=== PATIENT | female | born 1985 | race Caucasian/White ===

== ENCOUNTER → 2016-04-26 | Outpatient (CLI) | payer MEDICAID ==
[~2016-04-26] MED LIST: HYDR250V7 IM; PNV91TAB3 PO
[2016-04-26 10:23] LABS: BASOPHILS % (AUTO) 0 % (0-2); EOSINOPHILS # (AUTO) 0.1 10^3uL; EOSINOPHILS % (AUTO) 1 % (0-4); LYMPHOCYTES # (AUTO) 1.9 X10^3; MEAN CORPUSCULAR HGB CONC 35.1 g/dL (31.0-37.0); MEAN CORPUSCULAR VOLUME 96 FL (80-100); MEAN PLATELET VOLUME 10.6 FL (6.0-9.5); MONOCYTES # (AUTO) 0.6 X10^3; MONOCYTES % (AUTO) 5 % (3-11); NEUTROPHILS # (AUTO) 8.9 X10^3; NEUTROPHILS % (AUTO) 77 % (51-67); PLATELET COUNT 264 10^3uL (150-450); WHITE BLOOD COUNT 11.63 10^3uL (4.0-11.0)
[2016-04-26 10:28] LABS: MEAN CORPUSCULAR HEMOGLOBIN 33.5 PG (26.0-34.0)
[2016-04-26 11:31] LABS: BILIRUBIN,URINE Negative (Negative); CLARITY,URINE Clear; COLOR,URINE Yellow; GLUCOSE, URINE (UA) Negative (Negative); LEUKOCYTE ESTERASE ,URINE 1+ (Negative); PH,URINE 6.5 (5.0 - 8.0); UROBILINOGEN,URINE 0.2 mg/dL (0.2-1.0)
[2016-04-26 11:49] LABS: RBC,URINE 0-2 /HPF; URINE CENTRIFUGED VOLUME 12 mL
--- NOTE | 2016-04-26 15:17 | Diagnostic Imaging Report ---
INDICATION: Low-lying placenta. EXAMINATION: OB sonogram greater than 14 weeks from 04/26/2016. COMPARISON: Correlation made to previous sonogram dated 02/27/2016. FINDINGS: There is a single live intrauterine gestation. It is currently cephalic in positioning. Maternal cervix measures at least 3.2 cm in length. Today's measurements correspond with a 30 weeks 3 days . This correlates well with the first sonogram performed on 01/13/2016. Amniotic fluid index today is 8.02 towards the lower limits of normal but still within normal limits. cardiac activity is 139 beats per minute. The abdominal circumference and the femoral length are discrepant when compared to the head circumference. A short-term followup could reevaluate this finding. The remaining visualized anatomy is grossly unremarkable. IMPRESSION: 1. Single live intrauterine gestation with measurements corresponding well with the previous sonograms. However, measurements are somewhat discrepant when comparing the head circumference to the remaining measurements. Short-term followup could reevaluate. Remaining examination is unremarkable. Dictated by: Dictated on workstation # [id number]
== END ==
LOC: RAD 10:05
PROVIDERS: ATTEND Obstetrics & Gynecology
DX: O36.19 Maternal care for other isoimmunization (principal); O09.212 Supervision of pregnancy with history of pre-term labor, second trimester; O44.42 Low lying placenta NOS or without hemorrhage, second trimester; O34.42 Maternal care for other abnormalities of cervix, second trimester; R82.99 Other abnormal findings in urine; Z3A.30 30 weeks gestation of pregnancy
CPT/HCPCS: 36415; 76805; 81003; 81015; 82947; 82950; 85025; 86870; 86886; 87088

== ENCOUNTER 2016-04-30 11:46 | Outpatient (CLI) | payer MEDICAID ==
[~2016-04-30] VITALS: Ht 167.6 cm; Wt 70.0 kg
[2016-04-30 11:45] VITALS: BP 137/83
== END 2016-04-30 12:15 | disposition home or self-care (01) ==
LOC: OBGOP 11:46 → OB 11:47 → OBGOP 12:15
PROVIDERS: ATTEND Obstetrics & Gynecology
DX: Z03.79 Encounter for other suspected maternal and fetal conditions ruled out (principal); Z3A.30 30 weeks gestation of pregnancy
CPT/HCPCS: 84112; G0463; 99202

== ENCOUNTER → 2016-05-19 | Outpatient (CLI) | payer MEDICAID | LOC: RAD 12:15 | PROVIDERS: ATTEND Obstetrics & Gynecology | DX: O09.213 Supervision of pregnancy with history of pre-term labor, third trimester (principal); Z98.891 History of uterine scar from previous surgery; O36.5930 Maternal care for other known or suspected poor fetal growth, third trimester, not applicable or unspecified; Z3A.32 32 weeks gestation of pregnancy | CPT/HCPCS: 76805 ==

== ENCOUNTER 2016-05-28 11:34 | Outpatient (CLI) | payer MEDICAID ==
[~2016-05-28] VITALS: Ht 170.2 cm; Wt 160.0 kg
--- NOTE | 2016-05-28 11:45 | NUR ---
Pt to OB for NST and BP checks. Monitors applied.
[2016-05-28 11:55] VITALS: BP 142/87
[2016-05-28 12:09] VITALS: BP 153/86
[2016-05-28 12:20] VITALS: BP 142/87
[2016-05-28 12:22] VITALS: BP 157/94
--- NOTE | 2016-05-28 12:38 | NUR ---
Dr. Monreal here, monitor strip reviewed. Monitors off per Dr. Monreal.
[2016-05-28 13:07] LABS: MEAN CORPUSCULAR HEMOGLOBIN 33.3 PG (26.0-34.0); MEAN CORPUSCULAR HGB CONC 35.1 g/dL (31.0-37.0); MEAN PLATELET VOLUME 10.8 FL (6.0-9.5); WHITE BLOOD COUNT 10.45 10^3uL (4.0-11.0)
[2016-05-28 13:17] LABS: ALBUMIN 3.8 g/dL (3.4-5.0); ANION GAP 12.1 MEQ/L (3-15); CALCULATED IONIZED CALCIUM 3.9 mg/dL (3.8-4.6)
--- NOTE | 2016-05-28 13:30 | NUR ---
Dismissed to home with instructions. Verbalizes understanding and denies questions or concerns.
== END 2016-05-28 13:30 | disposition home or self-care (01) ==
LOC: EUOP 11:34 → OB 11:35 → EUOP 13:30
PROVIDERS: ATTEND Obstetrics & Gynecology
DX: Z34.93 Encounter for supervision of normal pregnancy, unspecified, third trimester (principal); Z3A.34 34 weeks gestation of pregnancy
CPT/HCPCS: 36415; 59025; 80053; 83615; 85027; 85384; 85610; 85730

== ENCOUNTER 2016-05-31 20:28 | Outpatient (CLI) | payer MEDICAID ==
[~2016-05-31] VITALS: Ht 170.2 cm; Wt 70.0 kg
[2016-05-31 20:45] VITALS: BP 167/86
[2016-05-31 21:03] VITALS: BP 141/84
[2016-05-31 21:19] VITALS: BP 140/81
[2016-05-31 21:27] LABS: BILIRUBIN,URINE Negative (Negative); CLARITY,URINE Clear; COLOR,URINE Yellow; GLUCOSE, URINE (UA) Negative (Negative); LEUKOCYTE ESTERASE, URINE 1+ (Negative); PH,URINE 6.5 (5.0 - 8.0); UROBILINOGEN,URINE 0.2 mg/dL (0.2-1.0)
== END 2016-05-31 21:55 ==
LOC: EUOP 20:28 → OB 20:29 → EUOP 21:55
PROVIDERS: ATTEND Obstetrics & Gynecology
DX: O46.8X3 Other antepartum hemorrhage, third trimester (principal); Z3A.34 34 weeks gestation of pregnancy
CPT/HCPCS: 81003; G0463; 99204

== ENCOUNTER 2016-06-04 13:02 | Outpatient (CLI) | payer MEDICAID ==
[~2016-06-04] VITALS: Ht 170.2 cm; Wt 63.6 kg
--- NOTE | 2016-06-04 13:05 | NUR ---
Admitted to OB for NST. Monitors applied.
[2016-06-04 13:16] VITALS: BP 148/83
[2016-06-04 13:25] VITALS: BP 134/80
[2016-06-04 13:38] VITALS: BP 153/89
--- NOTE | 2016-06-04 13:55 | NUR ---
Dismissed to home with instructions. Verbalizes understanding of all instructions.
--- NOTE | 2016-06-04 14:12 | NUR ---
UA dipstick trace for protein. Addendum: 06/04/16 at 1419 by Jerri Villa RN Reactive NST
[2016-06-04 14:20] VITALS: BP 153/89
== END 2016-06-04 13:55 | disposition home or self-care (01) ==
LOC: EUOP 13:02 → OB 13:03 → EUOP 13:55
PROVIDERS: ATTEND Obstetrics & Gynecology
DX: O13.3 Gestational [pregnancy-induced] hypertension without significant proteinuria, third trimester (principal); Z3A.35 35 weeks gestation of pregnancy
CPT/HCPCS: 59025

== ENCOUNTER 2016-06-05 13:10 | Outpatient (CLI) | payer MEDICAID ==
[~2016-06-05] VITALS: Ht 170.2 cm; Wt 72.0 kg
[2016-06-05 13:23] VITALS: BP 140/87
[2016-06-05 13:55] VITALS: BP 145/76
[2016-06-05] MEDS ORDERED: SODIUM CHLORIDE FLUSH 10 ML ONE (15:15)
[2016-06-05] MEDS ORDERED: SODIUM CHLORIDE FLUSH 10 ML SYR IV SCH (15:30)
[2016-06-05 15:40] VITALS: BP 155/92
--- NOTE | 2016-06-05 15:56 | NUR ---
1315 Pt arrives ambulatory at room 227 with friend. She states that she had a gush of fluid/blood at 1300. She showed this RN a picture of the pad with blood loss. Pt placed on monitor. Amnisure collected. Amnisure revealed a slight positive result. Dr. Joshi notified. Started preparation for transfer due to pt being 35 4/7 weeks gestation.
--- NOTE | 2016-06-05 16:10 | NUR ---
1510 Pt report telephoned to Holli Hernandez RN of [facility] by this RN. 1540 Report given to [facility] and care transferred. Pt in stable condition.
== END 2016-06-05 15:45 | disposition other institution (70) ==
LOC: OBGOP 13:10 → OB 13:12 → OBGOP 15:45
PROVIDERS: ATTEND Family Medicine
DX: O46.8X3 Other antepartum hemorrhage, third trimester (principal); Z3A.35 35 weeks gestation of pregnancy
CPT/HCPCS: 84112; G0463; J7030; 99204

== ENCOUNTER → 2016-06-05 | Outpatient (CLI) | payer MEDICAID | LOC: EMS 15:49 | PROVIDERS: ATTEND Family Medicine | DX: O46.8X3 Other antepartum hemorrhage, third trimester (principal); Z3A.35 35 weeks gestation of pregnancy ==